=== PATIENT | female | born 1965 | race Caucasian/White ===

== ENCOUNTER 2020-10-26 21:47 | Emergency (ER) | payer OTHER, BC ==
[2020-10-26] MEDS ORDERED: Acetaminophen 325 MG Tab ONE (22:17)
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
[2020-10-26] MEDS ORDERED: Ibuprofen 200 MG Tab PO STA (23:44)
--- NOTE | 2020-10-27 09:00 | CR ---
[id number] RAD/RAD Wrist Right 3V Min; [id number] RAD/RAD Forearm Right 2V; [id number] RAD/RAD Elbow Right 2V EXAM: RAD Wrist Right 3V Min, RAD Elbow Right 2V, RAD Forearm Right 2V INDICATION: INJURY. COMPARISON: None. DISCUSSION: No fracture, dislocation or other osseous abnormality. IMPRESSION: 1. Negative exam. Cristobal Monaco MD 10/27/20 0859 Thank you for allowing us to participate in the care of your patient.
== END 2020-10-27 01:26 | disposition home or self-care (01) ==
LOC: VM.ED 21:47
DX: S50.01XA Contusion of right elbow, initial encounter (principal); M25.531 Pain in right wrist; R51.9 Headache, unspecified; V89.2XXA Person injured in unspecified motor-vehicle accident, traffic, initial encounter; Y92.411 Interstate highway as the place of occurrence of the external cause
CPT/HCPCS: 73080-RT; 73090-RT; 73110-RT; 99283; 99284-25; A9270-GY